=== PATIENT | female | born 1965 ===

== ENCOUNTER 2017-08-22 15:50 | Outpatient (CLI) | payer OTHER ==
[~2017-08-22 15:50] MED LIST: BENICAR5 MG PO; CLONAZEPAM0.5 MG PO; COLACE100 MG PO; COREG CR20 MG PO; DIAZEPAM5 MG PO; DOCUSATE SODIU100 MG PO; LUNESTA2 MG PO; NEURONTIN800 MG PO; NUCYNTA50 MG PO; PROAIR HFA8.5 GM IH; QVAR7.3 G1 IH; TENCON 50-3251 EACH PO; TRINTELLIX5 MG PO; ULTRACET PO
== END 2017-08-22 17:00 | disposition home or self-care (01) ==
LOC: RAD 15:50
DX: M50.30 Other cervical disc degeneration, unspecified cervical region (principal); Z98.1 Arthrodesis status